=== PATIENT | female | born 1935 | race Caucasian/White ===

== ENCOUNTER 2023-05-04 14:49 | Inpatient (IN) | payer OTHER, MEDICAID ==
[~2023-05-04] VITALS: Ht 160 cm; Wt 51.5 kg
[2023-05-04 14:50] VITALS: BP_SYST 198; PULSE 105; RESP 22; TEMP 98; O2SAT 95
[2023-05-04 15:42] LABS: ANION GAP 10 (5-15); CALCIUM 8.8 mg/dL (8.4-11.0); CARBON DIOXIDE 25 mmol/L (23-29); CHLORIDE 105 mmol/L (98-107); CREATININE 1.36 mg/dL (0.55-1.30); GLUCOSE 118 mg/dL (74-106); POTASSIUM 4.9 mmol/L (3.5-5.1); SODIUM SERUM 140 mmol/L (136-145); UREA NITROGEN, BLOOD 46 mg/dL (8-21)
[2023-05-04 15:49] LABS: BASOPHILS # (AUTO) 0.1 K/uL (0.0-0.2); BASOPHILS % (AUTO) 0.6 % (0.0-2.0); EOSINOPHILS # (AUTO) 0.3 K/uL (0.0-0.4); EOSINOPHILS % (AUTO) 3.1 % (0.0-4.0); HEMATOCRIT 33.1 % (36-48); HEMOGLOBIN 10.7 g/dL (12.0-16.0); LYMPHOCYTES # (AUTO) 1.5 K/uL (1.0-5.5); LYMPHOCYTES % (AUTO) 16.2 % (20.5-51.5); MEAN CORPUSCULAR HEMOGLOBIN 27 pg (27-31); MEAN CORPUSCULAR HGB CONC 32 % (32-36); MEAN CORPUSCULAR VOLUME 84 fL (79.0-98.0); MONOCYTES # (AUTO) 0.5 K/uL (0.0-1.0); NEUTROPHILS # (AUTO) 6.7 K/uL (1.8-7.7); NEUTROPHILS % (AUTO) 74.1 % (40.0-70.0); PLATELET COUNT (AUTO) 338 K/uL (130-430); RED BLOOD CELL COUNT(AUTO) 3.94 MIL/uL (4.2-6.2); RED CELL DISTRIBUTION WIDTH 16.8 % (9.0-15.0); WHITE BLOOD COUNT (AUTO) 9.1 K/uL (4.8-10.8)
[2023-05-04 16:06] LABS: INR 1.4 (0.8-1.2)
[2023-05-04 16:15] LABS: PROTHROMBIN TIME 14.1 SECS (9.5-12.5)
[2023-05-04 16:16] LABS: ALANINE AMINOTRANSFERASE 70 U/L (12-78); ALBUMIN 2.8 g/dL (3.4-4.8); ASPARTATE AMINOTRANSFERASE 56 U/L (10-37); CREATINE KINASE, TOTAL 49 U/L (26-192); TOTAL BILIRUBIN 1.3 mg/dL (0.0-1.0); TOTAL PROTEIN, SERUM 8.2 g/dL (6.4-8.3)
[2023-05-04 16:17] LABS: ABG O2 SAT% ESTIMATE 76.8 % (94.0-100.0); BLOOD GAS BASE EXCESS 0.3 mmol/L (-3.0-3.0); BLOOD GAS HCO3 24.4 mmol/L (21.0-27.0); BLOOD GAS PCO2 37.9 mmHg (35.0-45.0); BLOOD GAS PH 7.427 (7.350-7.450); BLOOD GAS PO2 40.1 mmHg (75.0-100.0)
[2023-05-04] MEDS ORDERED: LORazepam 2 MG/ML VIAL ONE (17:19)
[2023-05-04] MEDS ORDERED: LORazepam 2 MG/ML VIAL IVP ONE (17:30)
[2023-05-04] MEDS ORDERED: FUROSEMIDE 20 MG/2 ML VIAL IVP ONE (17:45)
[2023-05-05 01:00] VITALS: BP_SYST 145; PULSE 93; RESP 18; TEMP 98.2; O2SAT 98
[2023-05-05] MEDS ORDERED: SIME125C PO (02:32)
[2023-05-05] MEDS ORDERED: ACET325T PO (02:32)
[2023-05-05] MEDS ORDERED: LOSA100T23 PO (02:32)
[2023-05-05] MEDS ORDERED: VIBE75TA PO (02:32)
[2023-05-05] MEDS ORDERED: MAG-151 PO (02:32)
[2023-05-05] MEDS ORDERED: LACT10SO6 PO (02:32)
[2023-05-05] MEDS ORDERED: MOM PO (02:32)
[2023-05-05] MEDS ORDERED: ACET-73 PO (02:32)
[2023-05-05] MEDS ORDERED: PRO40 PO (02:32)
[2023-05-05] MEDS ORDERED: POLY17PO4 PO (02:32)
[2023-05-05] MEDS ORDERED: DOCU-144 PO (02:32)
[2023-05-05] MEDS ORDERED: APIX5TAB PO (02:32)
[2023-05-05] MEDS ORDERED: NEU300 PO ×2 (02:32)
[2023-05-05] MEDS ORDERED: CYAN100010 PO (02:32)
[2023-05-05 06:03] LABS: ANION GAP 8 (5-15); CALCIUM 8.9 mg/dL (8.4-11.0); CARBON DIOXIDE 28 mmol/L (23-29); CHLORIDE 109 mmol/L (98-107); CREATININE 1.22 mg/dL (0.55-1.30); GLUCOSE 89 mg/dL (74-106); POTASSIUM 4.2 mmol/L (3.5-5.1); SODIUM SERUM 145 mmol/L (136-145); UREA NITROGEN, BLOOD 34 mg/dL (8-21)
[2023-05-05 06:11] LABS: BASOPHILS # (AUTO) 0.1 K/uL (0.0-0.2); BASOPHILS % (AUTO) 0.8 % (0.0-2.0); EOSINOPHILS # (AUTO) 0.3 K/uL (0.0-0.4); EOSINOPHILS % (AUTO) 4.6 % (0.0-4.0); HEMATOCRIT 33.9 % (36-48); HEMOGLOBIN 10.7 g/dL (12.0-16.0); LYMPHOCYTES # (AUTO) 1.3 K/uL (1.0-5.5); LYMPHOCYTES % (AUTO) 18.9 % (20.5-51.5); MEAN CORPUSCULAR HEMOGLOBIN 27 pg (27-31); MEAN CORPUSCULAR HGB CONC 32 % (32-36); MEAN CORPUSCULAR VOLUME 84 fL (79.0-98.0); MONOCYTES # (AUTO) 0.5 K/uL (0.0-1.0); MONOCYTES % (AUTO) 7.6 % (1.7-9.3); NEUTROPHILS # (AUTO) 4.8 K/uL (1.8-7.7); NEUTROPHILS % (AUTO) 68.1 % (40.0-70.0); PLATELET COUNT (AUTO) 348 K/uL (130-430); RED BLOOD CELL COUNT(AUTO) 4.03 MIL/uL (4.2-6.2); RED CELL DISTRIBUTION WIDTH 16.3 % (9.0-15.0); WHITE BLOOD COUNT (AUTO) 7.1 K/uL (4.8-10.8)
[2023-05-05 06:18] LABS: THYROID STIMULATING HORMONE 2.8 uIu/mL (0.34-4.82)
[2023-05-05 06:23] LABS: ALANINE AMINOTRANSFERASE 50 U/L (12-78); ALBUMIN 2.6 g/dL (3.4-4.8); ASPARTATE AMINOTRANSFERASE 29 U/L (10-37); TOTAL BILIRUBIN 1.3 mg/dL (0.0-1.0); TOTAL PROTEIN, SERUM 7.5 g/dL (6.4-8.3)
[2023-05-05] MEDS ORDERED: ACETAMINOPHEN 325 MG TABLET PO PRN (07:30)
[2023-05-05 08:00] VITALS: BP_SYST 134; PULSE 88; RESP 20; TEMP 96.9; O2SAT 97
[2023-05-05] MEDS ORDERED: FUROSEMIDE 40 MG/4 ML VIAL IVP ONE (09:00)
[2023-05-05] MEDS ORDERED: NON-FORMULARY MEDICATION (Apixaban (Eliquis) 5 MG) PO SCH (09:00)
[2023-05-05] MEDS: PANTOPRAZOLE SODIUM 40 MG TAB PO SCH ×3 (10:31→21:05)
[2023-05-05] MEDS: CYANOCOBALAMIN (VITAMIN B-12) 1,000 MCG TABLET PO SCH (10:32)
[2023-05-05] MEDS: GABAPENTIN 300 MG CAPSULE PO SCH ×2 (10:32→14:45)
[2023-05-05] MEDS: LOSARTAN POTASSIUM 50 MG TABLET (COZAAR) PO SCH (10:32)
[2023-05-05] MEDS: CARVEDILOL 3.125 MG TABLET (COREG) PO SCH ×3 (10:33→21:03)
[2023-05-05] MEDS: FUROSEMIDE 20 MG/2 ML VIAL IVP SCH (10:33)
[2023-05-05] MEDS: APIXABAN 2.5 MG TABLET PO SCH ×3 (10:34→21:05)
[2023-05-05 12:13] VITALS: BP_SYST 145; PULSE 94; RESP 16; TEMP 97.6; O2SAT 95
[2023-05-05] MEDS: LORazepam 2 MG/ML VIAL IVP PRN (13:57)
[2023-05-05 16:17] VITALS: BP_SYST 111; PULSE 91; RESP 18; TEMP 97.6; O2SAT 95
[2023-05-05 19:00] VITALS: BP_SYST 128; PULSE 80; RESP 12; TEMP 96.2; O2SAT 98
[2023-05-05 20:00] VITALS: BP_SYST 128; PULSE 80; RESP 12; TEMP 96.2; O2SAT 98
[2023-05-06 01:09] VITALS: BP_SYST 130; PULSE 86; RESP 14; TEMP 96.9; O2SAT 98
[2023-05-06 07:40] VITALS: BP_SYST 166; PULSE 120; RESP 24; TEMP 97.4; O2SAT 97
[2023-05-06] MEDS: PANTOPRAZOLE SODIUM 40 MG TAB PO SCH ×2 (08:27→21:13)
[2023-05-06] MEDS: LOSARTAN POTASSIUM 50 MG TABLET (COZAAR) PO SCH (08:28)
[2023-05-06] MEDS: APIXABAN 2.5 MG TABLET PO SCH ×2 (08:29→21:14)
[2023-05-06] MEDS: CYANOCOBALAMIN (VITAMIN B-12) 1,000 MCG TABLET PO SCH (08:30)
[2023-05-06] MEDS: GABAPENTIN 300 MG CAPSULE PO SCH ×2 (08:30→14:09)
[2023-05-06] MEDS: CARVEDILOL 3.125 MG TABLET (COREG) PO SCH ×2 (08:30→21:13)
[2023-05-06] MEDS: ACETAMINOPHEN 325 MG TABLET PO PRN ×2 (08:31→14:09)
[2023-05-06] MEDS: FUROSEMIDE 20 MG/2 ML VIAL IVP SCH (08:32)
[2023-05-06] MEDS: LORazepam 2 MG/ML VIAL IVP PRN (08:32)
[2023-05-06 12:30] VITALS: BP_SYST 112; PULSE 72; RESP 16; TEMP 97.5; O2SAT 97
[2023-05-06 17:32] VITALS: BP_SYST 126; PULSE 82; RESP 17; TEMP 97.9; O2SAT 97
[2023-05-06 20:00] VITALS: BP_SYST 123; PULSE 84; RESP 17; TEMP 97.6; O2SAT 95
[2023-05-07] VITALS: BP_SYST 131; PULSE 81; RESP 16; TEMP 97.5; O2SAT 96
[2023-05-07 08:27] VITALS: BP_SYST 147; PULSE 72; RESP 12; TEMP 96.2; O2SAT 100
[2023-05-07] MEDS: CYANOCOBALAMIN (VITAMIN B-12) 1,000 MCG TABLET PO SCH (09:04)
[2023-05-07] MEDS: GABAPENTIN 300 MG CAPSULE PO SCH ×2 (09:04→12:00)
[2023-05-07] MEDS: APIXABAN 2.5 MG TABLET PO SCH ×2 (09:05→21:02)
[2023-05-07] MEDS: LOSARTAN POTASSIUM 50 MG TABLET (COZAAR) PO SCH (09:05)
[2023-05-07] MEDS: CARVEDILOL 3.125 MG TABLET (COREG) PO SCH ×2 (09:06→20:59)
[2023-05-07] MEDS: PANTOPRAZOLE SODIUM 40 MG TAB PO SCH ×2 (09:06→20:58)
[2023-05-07] MEDS: FUROSEMIDE 20 MG/2 ML VIAL IVP SCH (09:07)
[2023-05-07 11:44] VITALS: O2SAT 100
[2023-05-07 12:05] VITALS: BP_SYST 172; PULSE 79; RESP 17; TEMP 98.1; O2SAT 96
[2023-05-07] MEDS ORDERED: IPRATROPIUM/ALBUTEROL SULFATE 3 ML AMPUL.NEB (DUONEB) INH PRN (16:00)
[2023-05-07 18:28] VITALS: BP_SYST 130; PULSE 78; RESP 18; TEMP 97.8; O2SAT 95
[2023-05-07 20:00] VITALS: BP_SYST 153; PULSE 84; RESP 17; TEMP 97.4; O2SAT 94
[2023-05-08] VITALS: BP_SYST 151; PULSE 77; RESP 18; TEMP 97.5; O2SAT 98
[2023-05-08 08:00] VITALS: BP_SYST 158; PULSE 78; RESP 18; TEMP 97.8; O2SAT 95
[2023-05-08] MEDS: GABAPENTIN 300 MG CAPSULE PO SCH ×2 (09:01→11:32)
[2023-05-08] MEDS: APIXABAN 2.5 MG TABLET PO SCH ×2 (09:02→20:16)
[2023-05-08] MEDS: CYANOCOBALAMIN (VITAMIN B-12) 1,000 MCG TABLET PO SCH (09:02)
[2023-05-08] MEDS: LOSARTAN POTASSIUM 50 MG TABLET (COZAAR) PO SCH (09:02)
[2023-05-08] MEDS: CARVEDILOL 3.125 MG TABLET (COREG) PO SCH ×2 (09:03→20:18)
[2023-05-08] MEDS: FUROSEMIDE 20 MG/2 ML VIAL IVP SCH (09:03)
[2023-05-08] MEDS: PANTOPRAZOLE SODIUM 40 MG TAB PO SCH ×2 (09:04→20:17)
[2023-05-08 11:59] VITALS: BP_SYST 157; PULSE 78; RESP 17; TEMP 97.7; O2SAT 94
[2023-05-08 17:12] VITALS: BP_SYST 171; PULSE 75; RESP 16; TEMP 98.2; O2SAT 96
[2023-05-08 20:00] VITALS: BP_SYST 155; PULSE 78; RESP 17; TEMP 97.8; O2SAT 95
[2023-05-09 01:37] VITALS: BP_SYST 160; PULSE 83; RESP 17; TEMP 97.6; O2SAT 97
[2023-05-09 08:28] VITALS: BP_SYST 173; PULSE 82; RESP 18; TEMP 97; O2SAT 97
[2023-05-09] MEDS: GABAPENTIN 300 MG CAPSULE PO SCH ×2 (08:35→12:15)
[2023-05-09] MEDS: PANTOPRAZOLE SODIUM 40 MG TAB PO SCH ×2 (08:36→21:30)
[2023-05-09] MEDS: CARVEDILOL 3.125 MG TABLET (COREG) PO SCH ×2 (08:36→21:32)
[2023-05-09] MEDS: LOSARTAN POTASSIUM 50 MG TABLET (COZAAR) PO SCH (08:38)
[2023-05-09] MEDS: CYANOCOBALAMIN (VITAMIN B-12) 1,000 MCG TABLET PO SCH (08:38)
[2023-05-09] MEDS: APIXABAN 2.5 MG TABLET PO SCH ×2 (08:42→21:31)
[2023-05-09] MEDS: FUROSEMIDE 20 MG/2 ML VIAL IVP SCH (09:00)
[2023-05-09 10:00] VITALS: O2SAT 97
[2023-05-09 11:21] VITALS: BP_SYST 156; PULSE 97; RESP 17; TEMP 97.6; O2SAT 90
[2023-05-09 17:03] VITALS: BP_SYST 147; PULSE 77; RESP 17; TEMP 97.5; O2SAT 97
[2023-05-09 19:25] VITALS: BP_SYST 160; PULSE 78; RESP 18; TEMP 96.6; O2SAT 100; O2SAT 97
[2023-05-10 01:26] VITALS: BP_SYST 155; PULSE 76; RESP 16; TEMP 97.3; O2SAT 98
[2023-05-10 08:00] VITALS: BP_SYST 156; PULSE 75; RESP 18; TEMP 97.2; O2SAT 96
[2023-05-10] MEDS: CYANOCOBALAMIN (VITAMIN B-12) 1,000 MCG TABLET PO SCH (08:31)
[2023-05-10] MEDS: GABAPENTIN 300 MG CAPSULE PO SCH (08:31)
[2023-05-10] MEDS: LOSARTAN POTASSIUM 50 MG TABLET (COZAAR) PO SCH (08:33)
[2023-05-10] MEDS: PANTOPRAZOLE SODIUM 40 MG TAB PO SCH (08:34)
[2023-05-10] MEDS: CARVEDILOL 3.125 MG TABLET (COREG) PO SCH (08:34)
[2023-05-10] MEDS: APIXABAN 2.5 MG TABLET PO SCH (08:39)
[2023-05-10 08:48] VITALS: BP_SYST 156; PULSE 96; O2SAT 96
[2023-05-10 09:45] VITALS: O2SAT 96
[2023-05-10 12:00] VITALS: BP_SYST 134; PULSE 80; RESP 18; TEMP 97; O2SAT 100
[2023-05-10] MEDS ORDERED: FUROSEMIDE 20 MG TABLET PO ONE (12:15)
[2023-05-10 12:19] VITALS: BP_SYST 146; PULSE 85; RESP 18; TEMP 97.8; O2SAT 96
== END 2023-05-10 13:50 | disposition home health service (06) | DRG 291 ==
LOC: SED 14:49 → STU 18:08 → SMU 05-06 11:24
PROVIDERS: ADMIT Internal Medicine; ATTEND Internal Medicine
DX: I11.0 Hypertensive heart disease with heart failure (principal); I50.31 Acute diastolic (congestive) heart failure; J96.91 Respiratory failure, unspecified with hypoxia; N17.9 Acute kidney failure, unspecified; I24.8 Other forms of acute ischemic heart disease; I69.354 Hemiplegia and hemiparesis following cerebral infarction affecting left non-dominant side; Z79.01 Long term (current) use of anticoagulants; Z79.899 Other long term (current) drug therapy; Z90.710 Acquired absence of both cervix and uterus; Z99.3 Dependence on wheelchair
CPT/HCPCS: 36415; 36600; 71045; 80053; 80061; 82550; 82803; 83605; 83880; 84443; 84484; 85025; 85610-TC; 85730-TC; 93005; 93306; 94760; 97110-GP; 97530-GP; 99285; G0378; J1940; J2060

== ENCOUNTER 2023-08-17 19:20 | Inpatient (IN) | payer OTHER, MEDICAID ==
[~2023-08-17] VITALS: Ht 162.6 cm; Wt 54.4 kg
[~2023-08-17 19:20] MED LIST: ACET-73 PO; ACET325T PO; APIX5TAB PO; CYAN100010 PO; DOCU-144 PO; LACT10SO6 PO; LOSA100T24 PO; MAG-151 PO; MOM PO; NEU300 PO; POLY17PO4 PO; PRO40 PO; SIME125C PO; VIBE75TA PO
[2023-08-17 19:25] VITALS: BP_SYST 168; PULSE 101; RESP 20; TEMP 97.5; O2SAT 100
[2023-08-17] MEDS ORDERED: NACL 0.9% 1,000 ML IV ONE (19:30)
[2023-08-17] MEDS ORDERED: MECLIZINE HCL 25 MG TABLET (ANITVERT) PO ONE (19:30)
[2023-08-17] MEDS ORDERED: ONDANSETRON HCL 4 MG/2 ML VIAL IVP ONE (19:30)
[2023-08-17 20:54] LABS: BASOPHILS % (AUTO) 0.3 % (0.0-2.0); EOSINOPHILS # (AUTO) 0.1 K/uL (0.0-0.4); EOSINOPHILS % (AUTO) 0.5 % (0.0-4.0); HEMATOCRIT 31.3 % (36-48); HEMOGLOBIN 9.9 g/dL (12.0-16.0); LYMPHOCYTES # (AUTO) 0.9 K/uL (1.0-5.5); LYMPHOCYTES % (AUTO) 4.6 % (20.5-51.5); MEAN CORPUSCULAR HEMOGLOBIN 25 pg (27-31); MEAN CORPUSCULAR HGB CONC 32 % (32-36); MEAN CORPUSCULAR VOLUME 80 fL (79.0-98.0); MONOCYTES # (AUTO) 1.1 K/uL (0.0-1.0); MONOCYTES % (AUTO) 5.6 % (1.7-9.3); NEUTROPHILS # (AUTO) 16.7 K/uL (1.8-7.7); PLATELET COUNT (AUTO) 369 K/uL (130-430); RED CELL DISTRIBUTION WIDTH 18.7 % (9.0-15.0); WHITE BLOOD COUNT (AUTO) 18.7 K/uL (4.8-10.8)
[2023-08-17 21:20] LABS: ANION GAP 8 (5-15); CALCIUM 9.5 mg/dL (8.4-11.0); CARBON DIOXIDE 28 mmol/L (23-29); CHLORIDE 96 mmol/L (98-107); CREATININE 2.11 mg/dL (0.55-1.30); GLUCOSE 123 mg/dL (74-106); POTASSIUM 3.7 mmol/L (3.5-5.1); SODIUM SERUM 132 mmol/L (136-145); UREA NITROGEN, BLOOD 58 mg/dL (8-21)
[2023-08-17 21:30] VITALS: BP_SYST 147; PULSE 101; RESP 18; TEMP 97.7; O2SAT 99
[2023-08-17 21:39] LABS: ALANINE AMINOTRANSFERASE 25 U/L (12-78); ASPARTATE AMINOTRANSFERASE 56 U/L (10-37); TOTAL BILIRUBIN 0.9 mg/dL (0.0-1.0); TOTAL PROTEIN, SERUM 8.1 g/dL (6.4-8.3)
[2023-08-17] MEDS ORDERED: FUROSEMIDE 40 MG/4 ML VIAL IVP ONE (22:15)
[2023-08-17] MEDS ORDERED: ASPIRIN 81 MG TABLET(ECOTRIN) PO ONE (22:15)
[2023-08-17] MEDS ORDERED: ZOLPIDEM TARTRATE 5 MG TABLET PO PRN (22:45)
[2023-08-17] MEDS ORDERED: LORazepam 2 MG/ML VIAL IVP PRN (22:45)
[2023-08-17] MEDS ORDERED: ACETAMINOPHEN 325 MG TABLET PO PRN (22:45)
[2023-08-17] MEDS ORDERED: METOPROLOL TARTRATE 25 MG TABLET PO SCH (22:45)
[2023-08-17] MEDS ORDERED: ONDANSETRON HCL 4 MG/2 ML VIAL IVP PRN (22:45)
[2023-08-17] MEDS ORDERED: POTASSIUM CHLORIDE 20 MEQ TAB.PRT.SR PO PRN (22:45)
[2023-08-17] MEDS ORDERED: DOCUSATE SODIUM 100 MG CAPSULE PO PRN (22:45)
[2023-08-17] MEDS ORDERED: MUPIROCIN 2% TOPICAL OINTMENT 22 GM NS PRN (22:45)
[2023-08-17] MEDS ORDERED: MORPHINE 2 MG/ML INJ. SYRINGE IVP PRN ×2 (22:45)
[2023-08-17] MEDS ORDERED: HEPARIN 25,000 UNITS/D5W 250ML 250 ML IV SCH (22:45)
[2023-08-17] MEDS ORDERED: MAGNESIUM SULFATE 50 ML IV PRN (22:45)
[2023-08-17] MEDS ORDERED: IPRATROPIUM/ALBUTEROL SULFATE 3 ML AMPUL.NEB (DUONEB) INH PRN (22:45)
[2023-08-18] MEDS ORDERED: ACETAMINOPHEN 325 MG TABLET PO PRN (07:15)
[2023-08-18] MEDS ORDERED: GABAPENTIN 300 MG CAPSULE PO SCH (08:00)
[2023-08-18] MEDS ORDERED: HEPARIN 25,000 UNITS in 250 ML PREMIX IV PRN (08:30)
[2023-08-18] MEDS ORDERED: HEPARIN SODIUM,PORCINE 2000 UNITS/0.4 ML BOLUS IVP PRN (08:30)
[2023-08-18] MEDS ORDERED: HEPARIN SODIUM,PORCINE 3000 UNITS/0.6 ML BOLUS IVP PRN (08:30)
[2023-08-18] MEDS ORDERED: NON-FORMULARY MEDICATION (Vibegron (Gemtesa) 75 MG) PO SCH (09:00)
[2023-08-18] MEDS ORDERED: FUROSEMIDE 40 MG/4 ML VIAL IVP SCH (09:00)
== END 2023-08-17 22:55 | disposition left against medical advice (07) | DRG 282 ==
LOC: SED 19:20 → STU 22:37
PROVIDERS: ADMIT General Practice; ATTEND General Practice
DX: I21.4 Non-ST elevation (NSTEMI) myocardial infarction (principal); I50.9 Heart failure, unspecified; Z53.29 Procedure and treatment not carried out because of patient's decision for other reasons; I11.0 Hypertensive heart disease with heart failure; Z79.899 Other long term (current) drug therapy
CPT/HCPCS: 36415; 70450-TC; 71045; 76376; 80053; 82962; 83037; 83880; 84484; 85025; 93005; 96361; 96374; 99285; G0378; J2405; J7030; J8597

== ENCOUNTER 2024-07-21 11:05 | Inpatient (IN) | payer OTHER, MEDICAID ==
[~2024-07-21] VITALS: Ht 162.6 cm; Wt 53.6 kg
[2024-07-21 11:12] VITALS: BP_SYST 146; PULSE 73; RESP 18; TEMP 100.1; O2SAT 99
[2024-07-21 12:00] LABS: BASOPHILS # (AUTO) 0.1 K/uL (0.0-0.2); BASOPHILS % (AUTO) 0.8 % (0.0-2.0); EOSINOPHILS % (AUTO) 0.5 % (0.0-4.0); HEMATOCRIT 29.8 % (36-48); HEMOGLOBIN 9.7 g/dL (12.0-16.0); LYMPHOCYTES # (AUTO) 1.2 K/uL (1.0-5.5); MEAN CORPUSCULAR HEMOGLOBIN 29 pg (27-31); MEAN CORPUSCULAR HGB CONC 33 % (32-36); MEAN CORPUSCULAR VOLUME 88 fL (79.0-98.0); MONOCYTES # (AUTO) 0.4 K/uL (0.0-1.0); MONOCYTES % (AUTO) 6.2 % (1.7-9.3); NEUTROPHILS # (AUTO) 4.5 K/uL (1.8-7.7); NEUTROPHILS % (AUTO) 73.5 % (40.0-70.0); PLATELET COUNT (AUTO) 295 K/uL (130-430); RED CELL DISTRIBUTION WIDTH 18.1 % (9.0-15.0); WHITE BLOOD COUNT (AUTO) 6.2 K/uL (4.8-10.8)
[2024-07-21 12:01] LABS: INR 1.1 (0.8-1.2); PROTHROMBIN TIME 11.9 SECS (9.5-12.5)
[2024-07-21 12:12] LABS: ALANINE AMINOTRANSFERASE 25 U/L (12-78); ALBUMIN 2.8 g/dL (3.4-4.8); ANION GAP 5 (5-15); ASPARTATE AMINOTRANSFERASE 33 U/L (10-37); BILIRUBIN,DIRECT 0.3 mg/dL (0.0-0.3); CALCIUM 8.9 mg/dL (8.4-11.0); CARBON DIOXIDE 32 mmol/L (23-29); CHLORIDE 104 mmol/L (98-107); CREATINE KINASE, TOTAL 50 U/L (26-192); CREATININE 1.51 mg/dL (0.55-1.30); GLUCOSE 109 mg/dL (74-106); POTASSIUM 4.8 mmol/L (3.5-5.1); SODIUM SERUM 141 mmol/L (136-145); TOTAL BILIRUBIN 0.9 mg/dL (0.0-1.0); TOTAL PROTEIN, SERUM 7.7 g/dL (6.4-8.3); UREA NITROGEN, BLOOD 35 mg/dL (8-21)
[2024-07-21] MEDS ORDERED: APIX2.5T PO (14:51)
[2024-07-21] MEDS ORDERED: AMLO10TA88 PO (14:51)
[2024-07-21] MEDS ORDERED: DICL100G60 TP (14:51)
[2024-07-21] MEDS ORDERED: FURO20TA4 PO (15:13)
[2024-07-21] MEDS ORDERED: FERR325T30 PO (15:13)
[2024-07-21] MEDS ORDERED: GABA-529 PO (15:13)
[2024-07-21] MEDS ORDERED: HYDR25TA4 PO (15:16)
[2024-07-21] MEDS ORDERED: LOSA-415 PO (15:19)
[2024-07-21] MEDS ORDERED: VIBE75TA PO (15:19)
[2024-07-21] MEDS: ASPIRIN 81 MG TAB.CHEW PO ONE ×2 (16:04→18:00)
[2024-07-21 16:58] LABS: COVID19 ANTIGEN SOFIA FIA NEGATIVE (NEGATIVE)
[2024-07-21 16:59] LABS: INFLUENZA TYPE A Negative (NEGATIVE); INFLUENZA TYPE B NEGATIVE (NEGATIVE)
[2024-07-21] MEDS ORDERED: ACETAMINOPHEN 325 MG TABLET PO PRN (18:15)
[2024-07-21] MEDS ORDERED: MILK OF MAGNESIA 30 ML UDC PO PRN (18:15)
[2024-07-21] MEDS ORDERED: GABAPENTIN 100 MG CAPSULE PO SCH (21:00)
[2024-07-21] MEDS ORDERED: GABAPENTIN 300 MG CAPSULE PO SCH (21:00)
[2024-07-21] MEDS ORDERED: APIXABAN 2.5 MG TABLET PO SCH (21:00)
[2024-07-21 22:54] VITALS: BP_SYST 143; PULSE 103; RESP 18
[2024-07-21] MEDS: PANTOPRAZOLE SODIUM 40 MG TAB PO SCH (23:18)
[2024-07-21] MEDS: APIXABAN 2.5 MG TABLET PO SCH (23:18)
[2024-07-21] MEDS: DOCUSATE SODIUM 100 MG CAPSULE PO SCH (23:19)
[2024-07-21 23:50] VITALS: O2SAT 90
[2024-07-22] VITALS (12 sets, daily range): BP systolic 139–151; PULSE 88–98; RESP 17–19; TEMP 96.5–98.6; O2SAT 87–98
[2024-07-22] MEDS: FUROSEMIDE 20 MG TABLET PO SCH (09:08)
[2024-07-22] MEDS: LOSARTAN POTASSIUM 50 MG TABLET (COZAAR) PO SCH (09:08)
[2024-07-22] MEDS: amLODIPine BESYLATE 10 MG TABLET PO SCH (09:08)
[2024-07-22] MEDS: FERROUS SULFATE 325 MG TABLET.DR PO SCH (09:09)
[2024-07-22] MEDS: CYANOCOBALAMIN (VITAMIN B-12) 1,000 MCG TABLET PO SCH (09:11)
[2024-07-22] MEDS: IPRATROPIUM/ALBUTEROL SULFATE 3 ML AMPUL.NEB (DUONEB) INH SCH (11:00)
[2024-07-22] MEDS ORDERED: HYDROcodone/ACETAMIN 10-325 MG TAB PO PRN (13:30)
[2024-07-22] MEDS ORDERED: HYDROcodone/ACETAMIN 5-325 MG TAB (NORCO/ VICODIN) PO PRN (13:30)
[2024-07-22] MEDS ORDERED: ACETAMINOPHEN 325 MG TABLET PO PRN (13:30)
[2024-07-22] MEDS ORDERED: NALOXONE HCL 0.4 MG/ML AMP (NARCAN) IVP PRN ×2 (13:30)
[2024-07-22] MEDS ORDERED: LORazepam 2 MG/ML VIAL IVP PRN (13:30)
[2024-07-22] MEDS ORDERED: ONDANSETRON HCL 4 MG/2 ML VIAL IVP PRN (13:30)
[2024-07-22] MEDS: NORMAL SALINE 5 ML DISP.SYRIN IVF SCH (14:54)
[2024-07-23] VITALS (7 sets, daily range): BP systolic 130–147; PULSE 94–106; RESP 15–16; TEMP 97.3–99.8; O2SAT 92–98
[2024-07-23] MEDS ORDERED: LEVOFLOXACIN 250 MG/D5W 50 ML IV SCH (09:00)
[2024-07-23] MEDS ORDERED: LEVO-62 PO (09:41)
[2024-07-23] MEDS: levoFLOXacin 500 MG TABLET PO SCH (10:23)
[2024-07-24] MEDS ORDERED: DILTIAZEM HCL 180 MG CAP.SR.24H PO SCH (09:00)
== END 2024-07-23 15:02 | disposition home or self-care (01) | DRG 193 ==
LOC: SED 11:05 → STU 17:18
PROVIDERS: ADMIT Preventive Medicine Preventive Medicine/Occupational Environmental Medicine; ATTEND Preventive Medicine Preventive Medicine/Occupational Environmental Medicine
DX: J18.9 Pneumonia, unspecified organism (principal); I50.33 Acute on chronic diastolic (congestive) heart failure; J96.01 Acute respiratory failure with hypoxia; I13.0 Hypertensive heart and chronic kidney disease with heart failure and stage 1 through stage 4 chronic kidney disease, or unspecified chronic kidney disease; J44.1 Chronic obstructive pulmonary disease with (acute) exacerbation; N17.9 Acute kidney failure, unspecified; I24.89 Other forms of acute ischemic heart disease; K21.9 Gastro-esophageal reflux disease without esophagitis; N18.9 Chronic kidney disease, unspecified; D64.9 Anemia, unspecified; Z20.822 Contact with and (suspected) exposure to COVID-19; K59.00 Constipation, unspecified; E88.09 Other disorders of plasma-protein metabolism, not elsewhere classified; I48.0 Paroxysmal atrial fibrillation; Z79.01 Long term (current) use of anticoagulants; Z79.899 Other long term (current) drug therapy; Z88.8 Allergy status to other drugs, medicaments and biological substances; Z86.73 Personal history of transient ischemic attack (TIA), and cerebral infarction without residual deficits; F03.90 Unspecified dementia, unspecified severity, without behavioral disturbance, psychotic disturbance, mood disturbance, and anxiety
CPT/HCPCS: 36415; 71045; 71250-TC; 80048; 80076; 82550; 83605; 83880; 84484; 85025; 85610; 85730; 93005; 93306; 94640; 94760; 97112-GP; 97530-GP; 99285; G0378; J1956; J7050